=== PATIENT | male | born 1990 | race Caucasian/White ===

== ENCOUNTER 2022-04-03 14:48 | Emergency (ER) | payer OTHER ==
[2022-04-03 15:09] VITALS: TEMP 98.2
[2022-04-03] MEDS ORDERED: SODIUM CHLORIDE 0.9% 1,000 ML IV STA (16:16)
[2022-04-03] MEDS ORDERED: ASPIRIN 81 MG PO STA (16:16)
[2022-04-03] MEDS ORDERED: ONDANSETRON 4 MG/2 ML VIAL IVP STA (16:16)
[2022-04-03] MEDS ORDERED: KETOROLAC 15 MG/ML 1 ML VIAL IVP STA (16:16)
--- NOTE | 2022-04-03 16:27 | ED ---
General Adult HPI - General Chief complaint: Chest Pain Stated complaint: Chest pains,Numbness in extremities Time Seen by Provider: 04/03/22 16:03 Source: patient, RN notes reviewed Mode of arrival: ambulatory Limitations: no limitations - History of Present Illness Initial comments: 31-year-old male presents to the emergency department for evaluation of multiple complaints. Patient states he has numbness to bilateral upper and lower extremities. States this has been an ongoing issue for the past 2 days. Reports a history of chronic back pain but no new injury. States he has anxiety and takes Xanax twice daily, but insists that this is different than his typical anxiety presentation. Also complains of midsternal chest pressure [address] that has worsened today and is accompanied by occasional palpitations. States he is mildly nauseous feels that he is unable to digest his food. Reports pain worsens after eating. Denies fever, chills, headache, dizziness, difficulty breathing, vomiting, diarrhea, dysuria, hematuria, lower extremity edema. - Related Data Previous Rx's Medication Instructions Recorded predniSONE 50 mg PO DAILY #5 tab 04/03/22 Allergies Allergy/AdvReac Type Severity Reaction Status Date / Time No Known Allergies Allergy Verified 04/03/22 17:26 Review of Systems ROS Statement: Those systems with pertinent positive or pertinent negative responses have been documented in the HPI. ROS Other: All systems not noted in ROS Statement are negative. Past Medical History Past Medical History: No Reported History History of Any Multi-Drug Resistant Organisms: None Reported Past Surgical History: No Surgical Hx Reported Past Psychological History: Anxiety Smoking Status: Current some day smoker, Vaper Past Alcohol Use History: Occasional Past Drug Use History: None Reported General Exam Limitations: no limitations (Well-developed, well-nourished male in no acute distress. Initial temperature 98.2, pulse 70, respirations 20, blood pressure 133/78, pulse ox 100% on room air.) General appearance: alert, in no apparent distress Eye exam: Present: normal appearance, PERRL, EOMI. Absent: scleral icterus, conjunctival injection ENT exam: Present: normal exam, normal oropharynx, mucous membranes moist Respiratory exam: Present: normal lung sounds bilaterally. Absent: respiratory distress, wheezes, rales, rhonchi, stridor, chest wall tenderness Cardiovascular Exam: Present: regular rate, normal rhythm, normal heart sounds. Absent: systolic murmur, diastolic murmur, rubs, gallop, clicks GI/Abdominal exam: Present: soft, tenderness (Mild epigastric and right upper q uadrant tenderness upon palpation), normal bowel sounds. Absent: distended, guarding, rebound, rigid Extremities exam: Present: normal inspection, full ROM, normal capillary refill, other (Range of motion intact.). Absent: pedal edema, calf tenderness Back exam: Present: normal inspection. Absent: CVA tenderness (R), CVA tenderness (L), paraspinal tenderness, vertebral tenderness Neurological exam: Present: alert, oriented X3, CN II-XII intact, normal gait Expanded Patient oriented to: Present: person, place, time Speech: Present: fluid speech Cranial nerves: EOM's Intact: Normal, Nystagmus: Normal Motor strength exam: RUE: 5, LUE: 5, RLE: 5, LLE: 5 Eye Response: (4) open spontaneously Motor Response: (6) obeys commands Verbal Response: (5) oriented Mack Total: 15 Psychiatric exam: Present: flat affect Skin exam: Present: warm, dry, intact, normal color. Absent: rash Course Vital Signs 04/03/22 04/03/22 15:04 17:38 Temperature 98.2 F Pulse Rate 70 56 L Respiratory 20 18 Rate Blood Pressure 133/78 126/76 O2 Sat by Pulse 100 100 Oximetry - Reevaluation(s) Reevaluation #1: 04/03/22 17:20 Upon reassessment, patient states he is feeling unchanged overall. Describes epigastric discomfort as a "grabbing sensation" that radiates into the throat. Discussed laboratory study results and patient is reassured. 04/03/22 18:30 Patient was given a GI cocktail with minimal change in discomfort. He is in no acute distress and is moving freely. Discussed findings at length including tests for cardiac, pulmonary, pancrease, and gall bladder concerns. POC: discharge home to establish with primary care. Medical Decision Making - Medical Decision Making This is a 31-year-old male with a past medical history of anxiety who presents to the emergency department for evaluation of chest pressure that originates in the epigastrium and extends to the throat. It is accompanied by right upper q uadrant discomfort and sensation of poor digestion. In addition, patient also complains of bilateral lower extremity numbness. No saddle anesthesia, foot drop, or loss of bowel or bladder control. No loss of strength or coordination. Minimal decrease in sensation. Laboratory studies were obtained. Troponin is negative. Calcium and protein slightly elevated. EKG shows sinus bradycardia with no ectopy. CHest X-ray is negative. Ultrasound of RUQ is unremarkable. Patient was given IV fluids, zofran, GI cocktail, and Toradol with minimal improvement. Discussed findings with patient. Implored him to establish with primary care. Will prescribe oral steroid for lumbar radiculopathy. Strict return parameters discussed in detail. Patient verbalizes understanding and agrees with this plan. Attending: Austin. - Lab Data Result diagrams: 04/03/22 16:23 04/03/22 16: Lab Results 04/03/22 04/03/22 04/03/22 Range/Units 16:23 16:23 16:23 WBC 9.6 (3.8-10.6) k/uL RBC 5.46 (4.30-5.90) m/uL Hgb 16.2 (13.0-17.5) gm/dL Hct 48.6 (39.0-53.0) % MCV 88.9 (80.0-100.0) fL MCH 29.6 (25.0-35.0) pg MCHC 33.3 (31.0-37.0) g/dL RDW 12.4 (11.5-15.5) % Plt Count 273 (150-450) k/uL MPV 7.9 Neutrophils % 77 % Lymphocytes % 16 % Monocytes % 5 % Eosinophils % 1 % Basophils % 0 % Neutrophils # 7.5 (1.3-7.7) k/uL Lymphocytes # 1.5 (1.0-4.8) k/uL Monocytes # 0.4 (0-1.0) k/uL Eosinophils # 0.1 (0-0.7) k/uL Basophils # 0.0 (0-0.2) k/uL PT 10.5 (9.0-12.0) sec INR 1.0 (<1.2) APTT 24.9 (22.0-30.0) sec Sodium 140 (137-145) mmol/L Potassium 4.2 (3.5-5.1) mmol/L Chloride 101 (98-107) mmol/L Carbon Dioxide 20 L (22-30) mmol/L Anion Gap 19 mmol/L BUN 17 (9-20) mg/dL Creatinine 0.86 (0.66-1.25) mg/dL Est GFR (CKD-EPI)AfAm >90 (>60 ml/min/1.73 sqM) Est GFR (CKD-EPI)NonAf >90 (>60 ml/min/1.73 sqM) Glucose 97 (74-99) mg/dL Calcium 11.0 H (8.4-10.2) mg/dL Magnesium 2.0 (1.6-2.3) mg/dL Total Bilirubin 0.5 (0.2-1.3) mg/dL AST 26 (17-59) U/L ALT 24 (4-49) U/L Alkaline Phosphatase 77 (38-126) U/L Troponin I (0.000-0.034) ng/mL Total Protein 9.0 H (6.3-8.2) g/dL Albumin 5.7 H (3.5-5.0) g/dL Lipase 62 (23-300) U/L Urine Color Urine Appearance (Clear) Urine pH (5.0-8.0) Ur Specific Viola (1.001-1.035) Urine Protein (Negative) Urine Glucose (UA) (Negative) Urine Ketones (Negative) Urine Blood (Negative) Urine Nitrite (Negative) Urine Bilirubin (Negative) Urine Urobilinogen (<2.0) mg/dL Ur Leukocyte Esterase (Negative) 04/03/22 04/03/22 Range/Units 16:23 16:37 WBC (3.8-10.6) k/uL RBC (4.30-5.90) m/uL Hgb (13.0-17.5) gm/dL Hct (39.0-53.0) % MCV (80.0-100.0) fL MCH (25.0-35.0) pg MCHC (31.0-37.0) g/dL RDW (11.5-15.5) % Plt Count (150-450) k/uL MPV Neutrophils % % Lymphocytes % % Monocytes % % Eosinophils % % Basophils % % Neutrophils # (1.3-7.7) k/uL Lymphocytes # (1.0-4.8) k/uL Monocytes # (0-1.0) k/uL Eosinophils # (0-0.7) k/uL Basophils # (0-0.2) k/uL PT (9.0-12.0) sec INR (<1.2) APTT (22.0-30.0) sec Sodium (137-145) mmol/L Potassium (3.5-5.1) mmol/L Chloride (98-107) mmol/L Carbon Dioxide (22-30) mmol/L Anion Gap mmol/L BUN (9-20) mg/dL Creatinine (0.66-1.25) mg/dL Est GFR (CKD-EPI)AfAm (>60 ml/min/1.73 sqM) Est GFR (CKD-EPI)NonAf (>60 ml/min/1.73 sqM) Glucose (74-99) mg/dL Calcium (8.4-10.2) mg/dL Magnesium (1.6-2.3) mg/dL Total Bilirubin (0.2-1.3) mg/dL AST (17-59) U/L ALT (4-49) U/L Alkaline Phosphatase (38-126) U/L Troponin I <0.012 (0.000-0.034) ng/mL Total Protein (6.3-8.2) g/dL Albumin (3.5-5.0) g/dL Lipase (23-300) U/L Urine Color Colorless Urine Appearance Clear (Clear) Urine pH 6.5 (5.0-8.0) Ur Specific Viola 1.005 (1.001-1.035) Urine Protein Negative (Negative) Urine Glucose (UA) Negative (Negative) Urine Ketones Negative (Negative) Urine Blood Negative (Negative) Urine Nitrite Negative (Negative) Urine Bilirubin Negative (Negative) Urine Urobilinogen <2.0 (<2.0) mg/dL Ur Leukocyte Esterase Negative (Negative) - EKG Data EKG shows normal: sinus rhythm Rate: normal EKG Comments: EKG obtained at 1554 shows sinus bradycardia with sinus arrhythmia and possible right ventricular conduction delay. Ventricular rate 56, AK interval 171, QRS duration 104, QT/QTc 420/413. Interpretation borderline ECG. - Radiology Data Radiology results: report reviewed, image reviewed Two-view chest x-ray was obtained. Report was reviewed in its entirety. Impression per Dr. Gunderson is no acute cardiopulmonary process. Ultrasound of the right upper quadrant was obtained. Report was reviewed in its entirety. Impression per Dr. Gunderson is no discrete abnormality seen at this time. Disposition Clinical Impression: Non-cardiac chest pain, Abdominal pain, Lumbar radiculopathy Disposition: HOME SELF-CARE Condition: Stable Instructions (If sedation given, give patient instructions): Lumbar Radiculopathy (ED), Noncardiac Chest Pain (ED) Additional Instructions: Your being prescribed an oral steroid to treat lumbar radiculopathy which can cause numbness in the lower extremity. Your labs, EKG, and imaging (Chest xray and Ultrasound) show no concerning findings. Minimize your intake of greasy, fatty, or spicy food as long as digestive issues persist. Establish care with her PCP for further evaluation and treatment. Return to the emergency department with any new, worsening, or concerning symptoms. Prescriptions: predniSONE 50 mg PO DAILY #5 tab Is patient prescribed a controlled substance at d/c from ED?: No Referrals: None,Stated [Primary Care Provider] - 1-2 days Marty Lowery MD [STAFF PHYSICIAN] - 1-2 days Time of Disposition: 18:42
--- NOTE | 2022-04-03 16:34 | XR ---
EXAMINATION TYPE: XR chest 2V DATE OF EXAM: 04/03/2022 COMPARISON: NONE HISTORY: Chest pain TECHNIQUE: Frontal and lateral views of the chest are obtained. FINDINGS: There is no focal air space opacity, pleural effusion, or pneumothorax seen. The cardiac silhouette size is within normal limits. The osseous structures are intact. IMPRESSION: No acute cardiopulmonary process.
[2022-04-03 16:38] LABS: Basophils % (A) 0 %; Eosinophils # (A) 0.1 k/uL (0-0.7); Eosinophils % (A) 1 %; HCT 48.6 % (39.0-53.0); HGB 16.2 gm/dL (13.0-17.5); Lymphocytes # (A) 1.5 k/uL (1.0-4.8); Lymphocytes % (A) 16 %; MCH 29.6 pg (25.0-35.0); MCHC 33.3 g/dL (31.0-37.0); MCV 88.9 fL (80.0-100.0); Mean Platelet Volume 7.9; Monocytes # (A) 0.4 k/uL (0-1.0); Monocytes % (A) 5 %; Neutrophils # (A) 7.5 k/uL (1.3-7.7); Neutrophils % (A) 77 %; Platelet Count 273 k/uL (150-450); RBC 5.46 m/uL (4.30-5.90); RDW 12.4 % (11.5-15.5); WBC 9.6 k/uL (3.8-10.6)
[2022-04-03 16:50] LABS: ALT 24 U/L (4-49); AST 26 U/L (17-59); African American GFR (CKD) >90 (>60 ml/min/1.73 sqM); Albumin 5.7 g/dL (3.5-5.0); Alkaline Phosphatase 77 U/L (38-126); Anion Gap 19 mmol/L; Blood Urea Nitrogen 17 mg/dL (9-20); Carbon Dioxide 20 mmol/L (22-30); Chloride 101 mmol/L (98-107); Glucose 97 mg/dL (74-99); Lipase 62 U/L (23-300); Non-African American GFR(CKD) >90 (>60 ml/min/1.73 sqM); Potassium 4.2 mmol/L (3.5-5.1); Sodium 140 mmol/L (137-145); Total Bilirubin 0.5 mg/dL (0.2-1.3)
[2022-04-03 16:53] LABS: Partial Thromboplastin Time 24.9 sec (22.0-30.0); Prothrombin Time 10.5 sec (9.0-12.0)
[2022-04-03 17:13] LABS: Appearance,Urine Clear (Clear); Bilirubin,Urine Negative (Negative); Blood,Urine Negative (Negative); Color,Urine Colorless; Glucose,Urine (UA) Negative (Negative); Ketones,Urine Negative (Negative); Leukocyte Esterase,Urine Negative (Negative); Nitrite,Urine Negative (Negative); PH, Urine 6.5 (5.0-8.0); Protein,Urine Negative (Negative); Specific Gravity,Urine 1.005 (1.001-1.035); Urobilinogen,Urine <2.0 mg/dL (<2.0)
[2022-04-03] MEDS ORDERED: MAG HYDROX/AL HYDROX/SIMETH 30 ML, HYOSCYAMINE ELIXIR 10 ML, LIDOCAINE VISCOUS 2% 10 ML PO STA ×3 (17:23)
--- NOTE | 2022-04-03 17:43 | US ---
EXAMINATION TYPE: US abdomen limited DATE OF EXAM: 04/03/2022 COMPARISON: NONE CLINICAL HISTORY: right upper quadrant/epigastric pain. feels like a heart attack TECHNIQUE: Multiple sonographic images of the right upper quadrant are obtained. FINDINGS: EXAM MEASUREMENTS: Liver Length: 18.2 cm Gallbladder Wall: 0.2 cm CBD: 0.5 cm Right Kidney: 11.7 x 4.5 x 5.4 cm [employer] TECHNICIAN NOTES:bowel gas limits exam Pancreas: not seen due to bowel gas Liver: wnl Gallbladder: wnl Evidence for sonographic Kiser's sign: no CBD: wnl Right Kidney: wnl IMPRESSION: No discrete abnormality seen at this time.
[2022-04-03 18:50] VITALS: BP 134/60; PULSE 60; RESP 20
== END 2022-04-03 18:51 | disposition home or self-care (01) ==
LOC: EC 14:48
DX: R07.89 Other chest pain (principal); R10.13 Epigastric pain; M54.16 Radiculopathy, lumbar region; F17.200 Nicotine dependence, unspecified, uncomplicated
CPT/HCPCS: 36415; 80053; 83690; 83735; 84484; 85025; 85610; 85730; 81003; 71046; 76705; 99285; 96374; 96375; 96361; J2405; J1885

== ENCOUNTER → 2022-12-24 | Outpatient (CLI) | payer OTHER ==
--- NOTE | 2022-12-25 08:08 | CT ---
EXAMINATION TYPE: CT angio chest DATE OF EXAM: 12/24/2022 COMPARISON: None HISTORY: Chest pain. R/O dissection or aneurysm CT DLP: 1465.0 mGycm CONTRAST: CTA thoracic aorta with 3-D reconstruction is performed and with IV Contrast, patient injected with 1 00 ml mL of Isovue 370. Contrast CTA of the thoracic aorta was performed from the lung apex through the upper abdomen. 3D re construction imaging obtained at a separate workstation. CT Chest: THORACIC AORTA: No evidence for thoracic aortic aneurysm. Mild atheromatous changes seen. There is n o evidence for dissection or periaortic collection. LUNGS: The lungs are clear and free of infiltrate or atelectasis. No pulmonary nodule or mass is det ected. No pleural effusion or CT evidence of interstitial lung disease. MEDIASTINUM: No evidence for mediastinal hematoma. The heart is not enlarged. No evidence for med iastinal mass or adenopathy. HILAR STRUCTURES: No evidence for mass. No hilar adenopathy is appreciated. OTHER: Incidental mild gynecomastia noted. IMPRESSION- No evidence for abnormality of the thoracic aorta.
== END | disposition home or self-care (01) ==
LOC: RADCTMAIN 14:40
PROVIDERS: ATTEND Internal Medicine
DX: R07.89 Other chest pain (principal); M54.40 Lumbago with sciatica, unspecified side
CPT/HCPCS: 71275; Q9967

== ENCOUNTER → 2023-10-12 | Outpatient (CLI) | payer OTHER ==
--- NOTE | 2023-10-15 09:58 | CT ---
EXAMINATION TYPE: CT abdomen pelvis w con CT DLP: 2666.5 mGycm, Automated exposure control for dose reduction was used. DATE OF EXAM: 10/12/2023 7:02 PM COMPARISON: CT angiogram chest 12/24/2022 CLINICAL INDICATION:Male, 32 years old with history of ABD PAIN [id number]; left side pain for months TECHNIQUE: Axial CT of the abdomen and pelvis. Sagittal and coronal reformats were created on a [employer] workstation. Contrast used:100ML mL of Isovue 300 with IV Contrast, (none if empty) Oral contrast used: with Oral Contrast (none if empty) FINDINGS: LOWER CHEST: Small opacity likely subsegmental atelectasis and/or scarring in the lingula. ABDOMEN LIVER: Unremarkable GALLBLADDER AND BILE DUCTS: Gallbladder appears mostly contracted with no calcified stones seen. No i nflammation. PANCREAS: Mild fatty infiltration without acute finding SPLEEN: Small splenules are present. Unremarkable spleen. ADRENAL GLANDS: Unremarkable. KIDNEYS AND URETERS: Kidneys enhance symmetrically. No evidence of hydronephrosis or visible renal ca lculus. The ureters are unremarkable. PELVIS BLADDER: Unremarkable REPRODUCTIVE: Unremarkable prostate. ABDOMEN & PELVIS STOMACH AND BOWEL: Contrast traverses the stomach and multiple small bowel loops without evidence of obstruction. The appendix appears within normal limits. There is some stool and gas seen throughout the colon with no focal acute abnormality shown. PERITONEUM/RETROPERITONEUM: No evidence of pneumoperitoneum or free fluid. VASCULATURE: Aorta and major branches are grossly unremarkable. No AAA. Portal veins are enhancing. Splenic vein is patent. LYMPH NODES: No enlarged lymph nodes by CT criteria. SOFT TISSUE/ABDOMINAL WALL: Small fat-containing umbilical hernia. No acute findings. MUSCULOSKELETAL: No acute osseous abnormalities. Partial eventration noted along the diaphragm bilat erally. IMPRESSION: No acute abnormality in the abdomen or pelvis.
== END | disposition home or self-care (01) ==
LOC: RADCTMAIN 16:49
PROVIDERS: ATTEND Internal Medicine
DX: K57.92 Diverticulitis of intestine, part unspecified, without perforation or abscess without bleeding (principal); R10.32 Left lower quadrant pain
CPT/HCPCS: 74177; Q9967